=== PATIENT | male | born 1960 | race Hispanic/Latino ===

== ENCOUNTER 2025-02-05 06:21 | Day surgery (SDC) | payer BC, MEDICARE ==
[2025-01-30 10:53] LABS: Absolute Lymphocytes (CBC) 1.1 K/uL (0.7-4.9); Hematocrit 42.0 % (39.6-49.0); Hemoglobin 14.6 g/dL (13.6-17.9); MCH 29.7 pg (27.0-35.0); MCHC 34.8 g/dL (32.0-36.0); MCV 85.3 fL (80-100); MPV 9.4 fL (7.6-11.3); Nucleated RBC Absolute Count 0.0 (0-0); Nucleated Red Blood Cells % 0.1 % (0-0); RBC Red Blood Cell Count 4.92 M/uL (4.33-5.43); White Blood Count 3.90 thou/uL (4.3-10.9)
[2025-01-30 11:10] LABS: Anion Gap 9.7 mEq/L (5.0-15.0); BUN Blood Urea Nitrogen 12.0 mg/dL (7-18); Glucose Level 198.0 mg/dL (74-106); Potassium 3.7 mEq/L (3.5-5.1)
[2025-02-05] MEDS: NA CHLORIDE 0.9% 1,000 ML ONE (06:50)
[2025-02-05] MEDS ORDERED: LIDOCAINE 1% MPF 5 ML VIAL ONE (07:17)
[2025-02-05] MEDS ORDERED: GLYCOPYRROLATE 0.2 MG/ML SYR ONE (08:18)
[2025-02-05 08:35] VITALS: O2SAT 100
[2025-02-05 08:46] VITALS: BP 125/69; TEMP 97
== END 2025-02-05 09:43 | disposition home or self-care (01) ==
LOC: OR 06:21
PROVIDERS: ATTEND Internal Medicine Gastroenterology
PROC: 0DJD8ZZ Inspection of Lower Intestinal Tract, Via Natural or Artificial Opening Endoscopic (ICD-10-PCS; principal; 2025-02-05 07:30)
DX: Z12.11 Encounter for screening for malignant neoplasm of colon (principal); K57.30 Diverticulosis of large intestine without perforation or abscess without bleeding; K64.8 Other hemorrhoids; Z86.0100 Personal history of colon polyps, unspecified; Z80.0 Family history of malignant neoplasm of digestive organs
CPT/HCPCS: 36415; 80048; 82947; 85025; 93005; J2003; J2704; J7030